=== PATIENT | male | born 1955 | race Caucasian/White ===

== ENCOUNTER 2016-12-09 15:09 | Emergency (ER) | payer OTHER, MEDICAID ==
[~2016-12-09] VITALS: Ht 172.7 cm; Wt 61.0 kg
[2016-12-09] MEDS ORDERED: ONDANSETRON HCL 4MG/2ML VIAL IV STA (15:26)
[2016-12-09] MEDS ORDERED: KETOROLAC 30MG/ML VIAL IV STA (15:26)
[2016-12-09] MEDS ORDERED: MORPHINE SULFATE 4 MG/ML CPJ (NOT FOR IM USE) IV STA (15:26)
[2016-12-09] MEDS ORDERED: SODIUM CHLORIDE 0.9% 500 ML IV ONE (15:26)
[2016-12-09] MEDS ORDERED: METHYLPREDNISOLONE SOD SUCC 125 MG/2 ML VIAL IV STA (15:26)
[2016-12-09] MEDS ORDERED: LORAZEPAM 2MG/ML CPJ IV ONE ×2 (15:30→16:45)
[2016-12-09] MEDS ORDERED: IPRATROPIUM/ALBUTEROL 0.5-3(2.5)MG/3ML NEB HHN ONE (15:45)
[2016-12-09 15:52] LABS: HEMATOCRIT. 31.9 % (42.0-52.0); HEMOGLOBIN. 10.6 g/dL (14.0-18.0); MEAN CORPUSCULAR HEMOGLOBIN 28.6 pg (28.0-32.0); MEAN CORPUSCULAR VOLUME 86.5 fL (80.0-94.0); MEAN PLATELET VOLUME 6.4 fl (7.4-10.4); PLATELET 599 x1000/uL (130-400); RED BLOOD CELL COUNT 3.69 mill/uL (4.7-6.1)
[2016-12-09 15:55] LABS: CHLORIDE 90 mEq/L (98-107)
[2016-12-09 15:57] LABS: INR 1.1; PROTHROMBIN TIME 11.4 sec
[2016-12-09 16:05] LABS: CARBON DIOXIDE 30 mEq/L (21-32); CREATINE KINASE 136 IU/L (39-308); ETHANOL BLOOD < 10 mg/dL; TROPONIN I < 0.02 ng/mL (0.00-0.04)
[2016-12-09 16:26] LABS: PLATELET ESTIMATE INCREASED
[2016-12-09 17:49] LABS: BG BASE EXCESS 0.8 mmol/L (-2.0-2.0); BG CARBOXYHEMOGLOBIN 1.8 % (0.5-1.5); BG DEOXYHEMOGLOBIN 3.5 % (0.0-5.0); BG FRACTION INSPIRED OXYGEN 28; BG METHEMOGLOBIN 0.3 % (0.0-1.5); BG OXYGEN SATURATION 96.4 % (92.0-98.5); BG OXYHEMOGLOBIN 94.4 % (94.0-97.0); BG PCO2 38.3 mmHg (35.0-45.0); BG PH 7.433 (7.350-7.450); BG PO2 88.7 mmHg (75.0-100.0); BG SAMPLE SITE RIGHT RADIAL; BG TOTAL HEMOGLOBIN 10.9 g/dL (12.0-18.0); BG VENT MODE NASAL CANNULA
[2016-12-09 18:02] LABS: CLARITY URINE CLEAR (CLEAR); COLOR URINE YELLOW (YELLOW); GLUCOSE URINE NEGATIVE (NEGATIVE); KETONES URINE TRACE (NEGATIVE); LEUKOCYTE ESTERASE URINE NEGATIVE (NEGATIVE); NITRITE URINE NEGATIVE (NEGATIVE); OCCULT BLOOD URINE NEGATIVE (NEGATIVE); PH URINE 7.5 (4.5-8.0); PROTEIN URINE NEGATIVE (NEGATIVE); SPECIFIC GRAVITY URINE 1.011 (1.005-1.030); UROBILINOGEN URINE 0.2 E.U./dL (0.2-1.0)
[2016-12-09 18:24] LABS: *AMPHETAMINES SCREEN URINE NEGATIVE (NEGATIVE); *BARBITURATES SCREEN URINE NEGATIVE (NEGATIVE); *BENZODIAZEPINES SCREEN URINE NEGATIVE (NEGATIVE); *COCAINE SCREEN URINE NEGATIVE (NEGATIVE); CANNABINOID URINE SCREEN NEGATIVE (NEGATIVE); METHADONE URINE SCREEN NEGATIVE (NEGATIVE); OPIATES URINE SCREEN NEGATIVE (NEGATIVE); PHENCYCLIDINE URINE SCREEN NEGATIVE (NEGATIVE)
[2016-12-09] MEDS ORDERED: HALOPERIDOL 5MG TABLET PO ONE (19:45)
[2016-12-10 13:37] VITALS: BP 130/69
== END 2016-12-10 14:42 ==
LOC: ER 16:15 → CANBEDREQ 23:15 → ER 12-10 14:42
DX: J44.9 Chronic obstructive pulmonary disease, unspecified (principal); R45.851 Suicidal ideations; F17.200 Nicotine dependence, unspecified, uncomplicated
CPT/HCPCS: 36415; 36600; 71010; 80053; 80305; 80307; 80329; 81003; 82375; 82550; 82805; 83605; 83690; 83880; 84443; 84484; 85025; 85610; 85730; 87040; 93005; 94640; 96361; 96374; 96375; 96376; 99285; G0482; J1630; J1885; J2060; J2270; J2405; J2930; J7030; J7040; J7620